=== PATIENT | male | born 1995 | race African-American/Black ===

== ENCOUNTER 2021-10-06 10:57 | Emergency (ER) | payer SELFPAY ==
[2021-10-06] MEDS ORDERED: Tetracaine 0.5% PF 4 ML BOT ONE ×2 (12:27→13:23)
[2021-10-06] MEDS ORDERED: Metoclopramide HCl 10 MG/2 ML VIAL ONE (14:17)
[2021-10-06] MEDS ORDERED: Ketorolac Tromethamine 30 MG/ML VIAL ONE (14:17)
[2021-10-06] MEDS ORDERED: diphenhydrAMINE 50 MG/ML VIAL ONE (14:17)
[2021-10-06] MEDS ORDERED: Metoclopramide HCl 10 MG TAB ONE (14:39)
== END 2021-10-06 15:04 | disposition home or self-care (01) ==
LOC: CSHERS 10:57
DX: H57.11 Ocular pain, right eye (principal); R51.9 Headache, unspecified; F17.210 Nicotine dependence, cigarettes, uncomplicated
CPT/HCPCS: 96374; 96375; J1200; J1885; J2765

== ENCOUNTER 2021-10-15 12:56 | Emergency (ER) | payer SELFPAY | END 2021-10-15 13:45 | disposition home or self-care (01) | LOC: CSHERS 12:56 | DX: R51.9 Headache, unspecified (principal); F17.210 Nicotine dependence, cigarettes, uncomplicated ==